=== PATIENT | female | born 1995 | race Two or more races ===

== ENCOUNTER 2018-10-28 17:06 | Emergency (ER) | payer OTHER ==
--- NOTE | 2018-10-28 17:37 | ED ---
Abdominal Pain/Female - HPI Summary HPI Summary: Patient and provider are conversing in Welsh. Pt is a 23 y/o F presenting to ED with lower abd pain, mostly R-sided, onset this AM. She rates the pain as 5-6 out of 10. Her [facility] was Sep.21, and she is late, and there is the possibility she could be . She has nausea, but denies fever, chills, v/d. Patient is more often constipated. Patient went to the [facility] on because she was having some vaginal bleeding and discharge. At the clinic, they found a tampon in her vagina, which patient did not remember. They gave her ABX and patient felt much improved until the onset of her abd pain today. She smokes and drinks occasionally, but denies recreational drug use. - History of Current Complaint Chief Complaint: EDAbdPain Stated Complaint: ABD PAIN Hx Obtained From: Patient Onset/Duration: Lasting Hours, Still Present Timing: Constant Severity Currently: Moderate Pain Intensity: 6 Pain Scale Used: 0-10 Numeric Location: Discrete At: RLQ, Discrete At: LLQ Radiates: No Associated Signs and Symptoms: Positive: Nausea. Negative: Fever, Vomiting, Diarrhea, Other: - neg: chills Allergies/Adverse Reactions: Allergies Allergy/AdvReac Type Severity Reaction Status Date / Time No Known Allergies Allergy Verified 10/28/18 17:20 Home Medications: Home Medications NK [No Home Medications Reported] 10/28/18 [History Confirmed 10/28/18] PMH/Surg Hx/FS Hx/Imm Hx Previously Healthy: Yes Opthamlomology History: Denies: Hx Legally Blind EENT History: Denies: Hx Deafness Neurological History: Denies: Hx Dementia Infectious Disease History: No Infectious Disease History: Denies: Traveled Outside the [place] in Last 30 Days - Family History Known Family History: Positive: Respiratory Disease - brother: asthma Negative: Hypertension, Diabetes - Social History Occupation: Unemployed - OTHER Lives: With Family Alcohol Use: Occasionally Hx Substance Use: No Hx Tobacco Use: Yes Review of Systems Negative: Fever, Chills Positive: Abdominal Pain, Nausea. Negative: Vomiting, Diarrhea All Other Systems Reviewed And Are Negative: Yes Physical Exam - Summary Physical Exam Summary: VITAL SIGNS: Reviewed. GENERAL: Patient is a well-developed and nourished female who is lying comfortable in the stretcher. Patient is not in any acute respiratory distress. HEAD AND FACE: Normocephalic and atraumatic. EYES: PERRLA, EOMI x 2, No injected conjunctiva. EARS: Hearing grossly intact. Ear canals and tympanic membranes are WNL. MOUTH: Oropharynx within normal limits. NECK: Supple, trachea is midline, no adenopathy, no JVD. CHEST: Symmetric, no tenderness at palpation LUNGS: Clear to auscultation bilaterally. No wheezing or crackles. CVS: RRR, S1 and S2 present, no murmurs or gallops appreciated. ABDOMEN: Soft, lower abd tenderness, equally in L and R. No signs of distention. Positive bowel sounds. No rebound, no guarding, and no masses palpated. No abdominal bruit or pulsations. EXTREMITIES: FROM in all major joints, no edema, no cyanosis or clubbing. NEURO: Alert and oriented x 3. No acute neurological deficits. Speech is normal. SKIN: Dry and warm Triage Information Reviewed: Yes Vital Signs On Initial Exam: Initial Vitals Temp Pulse Resp BP Pulse Ox 97.7 F 70 19 129/69 100 10/28/18 17:15 10/28/18 17:15 10/28/18 17:15 10/28/18 17:15 10/28/18 17:15 Vital Signs Reviewed: Yes Diagnostics - Vital Signs Vital Signs Temp Pulse Resp BP Pulse Ox 10/28/18 17:15 97.7 F 70 19 129/69 100 - Laboratory Result Diagrams: 10/28/18 18:29 10/28/18 18:29 Lab Statement: Any lab studies that have been ordered have been reviewed, and results considered in the medical decision making process. Abdominal Pain Fem Course/Dx - Course Course Of Treatment: Pt is a 23 y/o F presenting to ED with lower abd pain, mostly R-sided, onset this AM. She rates the pain as 5-6 out of 10. Her [facility] was Sep.21, and she is late, and there is the possibility she could be . She has nausea, but denies fever, chills, v/d. Patient is more often constipated. Patient went to the [facility] on because she was having some vaginal bleeding and discharge. At the clinic, they found a tampon in her vagina , which patient did not remember. They gave her ABX and patient felt much improved until the onset of her abd pain today. She smokes and drinks occasionally, but denies recreational drug use. Blood work without any significant abnormality. The patient is awaiting for a right upper quadrant ultrasound and a pelvic ultrasound. At this time the patient will be signed out to Dr. Ram to follow up with the abdomen and pelvic ultrasounds. If needed he will order an abdominopelvic CT to rule out any intra-abdominal pathology. - Diagnoses Provider Diagnoses: Constipation Discharge - Sign-Out/Discharge Documenting (check all that apply): Sign-Out Patient Signing out patient TO: Christopher Ram - pending U/S results - Discharge Plan Condition: Stable Disposition: HOME Patient Education Materials: Constipation (ED) Referrals: [facility] [Outside] - 2 Days Additional Instructions: RETURN TO THE EMERGENCY DEPARTMENT FOR NEW OR WORSENING SYMPTOMS. - Attestation Statements Document Initiated by Fernyibe: Yes Documenting Scribe: Gerry Naik Provider For Whom Fernyibe is Documenting (Include Credential): Dr. Bolivar Ribera MD Scribe Attestation: Gerry Castorena, scribed for Dr. Bolivar Ribera MD on 10/29/18 at 1725. Scribe Documentation Reviewed: Yes Provider Attestation: The documentation as recorded by the Gerry elam accurately reflects the service I personally performed and the decisions made by , Dr. Bolivar Ribera MD Status of Scribe Document: Viewed
[2018-10-28] MEDS ORDERED: NS 0.9% 1000 ML* 1,000 ML IV ONE (17:41)
[2018-10-28 18:42] LABS: ABS Basophils 0 10^3/ul (0-0.2); ABS Eosinophils 0.2 10^3/ul (0-0.6); ABS Monocytes 0.8 10^3/ul (0-0.8); ABS Neutrophils 6.2 10^3/ul (1.5-7.7); ABS Nucleated RBC 0 10^3/ul; Hematocrit 40 % (35-47); Hemoglobin 13.5 g/dl (12.0-16.0); Mean Corpuscular HGB Conc 34 g/dl (31-36); Mean Corpuscular Hemoglobin 31 pg (27-31); Mean Corpuscular Volume 91 fL (80-97); Mean Platelet Volume 7.3 fL (7.4-10.4); Nucleated Red Blood Cells % 0; Platelet Count 328 10^3/ul (150-450); Red Blood Count 4.43 10^6/ul (4.00-5.40); Red Cell Distribution Width 13 % (10.5-15); White Blood Count 9.2 10^3/ul (3.5-10.8)
[2018-10-28 18:48] LABS: Urine Appearance Cloudy; Urine Bacteria 1+ (Absent); Urine Bilirubin Negative (Negative); Urine Blood Negative (Negative); Urine Color Yellow; Urine Glucose Negative (Negative); Urine Ketones Trace (Negative); Urine Nitrite Negative (Negative); Urine Protein 1+(30 mg/dL) (Negative); Urine Red Blood Cell Absent (Absent); Urine Specific Gravity 1.028 (1.010-1.030); Urine Urobilinogen Negative (Negative); Urine White Blood Cell 2+(11-20/hpf) (Absent)
[2018-10-28 18:58] LABS: ALT 28 U/L (7-52); AST 21 U/L (13-39); Albumin 4.8 g/dL (3.2-5.2); Albumin/Globulin Ratio 1.9 (1-3); Alkaline Phosphatase 53 U/L (34-104); Anion Gap 6 mmol/L (2-11); BUN/Creatinine Ratio 13.1 (8-20); Blood Urea Nitrogen 11 mg/dL (6-24); C Reactive Protein 1.43 mg/L (<8.01); CO2 Carbon Dioxide 26 mmol/L (22-32); Calcium 9.7 mg/dL (8.6-10.3); Chloride 108 mmol/L (101-111); EGFR Non-African American 82.6 (>60); Globulin 2.5 g/dL (2-4); Glucose 95 mg/dL (70-100); Potassium 3.9 mmol/L (3.5-5.0); Sodium 140 mmol/L (135-145); Total Protein 7.3 g/dL (6.4-8.9)
[2018-10-28 19:05] LABS: HCG Pregnancy < 0.60 mIU/mL
[2018-10-28] MEDS ORDERED: Piperacillin/Tazobac ADVAN(*) 3.375 GM in NS 0.9% 100 ML* 100 ML IVPB ONE (19:19)
--- NOTE | 2018-10-28 19:19 | ED ---
Progress - Progress Note Progress Note: Patient was signed out from Dr. Ribera upon shift change pending ultrasounds and disposition. DIAG US Appendix US reveals, per radiologist, equivocal findings of acute appendicitis. ED physician has reviewed this radiology report. Pelvic US reveals, per radiologist, sonographically normal uterus and ovaries. ED physician has reviewed this radiology report. CT CT abdomen and pelvis reveals, per radiology, constipation. No additional findings to correlate with patients symptomatology. ED physician has reviewed this radiology report. Course/Dx - Course Course Of Treatment: Pt is a 23 y/o F presenting to ED with lower abd pain, mostly R-sided, onset this AM. Patient was signed out from Dr. Ribera upon shift change pending ultrasounds and disposition. Appendix US reveals, per radiologist , equivocal findings of acute appendicitis. Pelvic US reveals, per radiologist, sonographically normal uterus and ovaries. CT abdomen and pelvis reveals, per radiology, constipation. No additional findings to correlate with patients symptomatology. Patient will be discharge with follow up from PCP. Patient is agreeable with this plan. - Diagnoses Provider Diagnoses: Constipation Discharge - Sign-Out/Discharge Documenting (check all that apply): Patient Departure - Discharge home, Receiving Sign-Out Receiving patient FROM: Bolivar Ribera - Upon shift change pending CT and disposition - Discharge Plan Condition: Stable Disposition: HOME Patient Education Materials: Constipation (ED) Referrals: [facility] [place] [facility] [Outside] - 2 Days Additional Instructions: RETURN TO THE EMERGENCY DEPARTMENT FOR NEW OR WORSENING SYMPTOMS. - Attestation Statements Document Initiated by Scribe: Yes Documenting Scribe: Lizabeth Erickson Provider For Whom Scribe is Documenting (Include Credential): Dr. Christopher Ram MD Scribe Attestation: I, Lizabeth Erickson, scraurelianoed for Dr. Christopher Ram MD on 10/28/18 at 2330. Status of Scribe Document: Ready
[2018-10-28] MEDS ORDERED: Iohexol 300* (CONTRAST) 10 ML SDV IV ONE (19:31)
[2018-10-28] MEDS ORDERED: Magnesium CITRATE* 300 ML BTL PO ONE (23:27)
[2018-10-28] MEDS ORDERED: Bisacodyl SUPP* 10 MG SUPP PR ONE (23:27)
[2018-10-28 23:47] VITALS: BP 104/61
== END 2018-10-28 23:46 | disposition home or self-care (01) ==
LOC: ED 17:06
DX: K59.00 Constipation, unspecified (principal); R11.0 Nausea
CPT/HCPCS: 36415; 74177; 76705; 76856; 80053; 81003; 81015; 83605; 83690; 84702; 85025; 86140; 87086; 96361; 96365; 96366; 99283; A9270-GY; J2543; Q9967